=== PATIENT | female | born 1960 | race Caucasian/White ===

== ENCOUNTER 2022-07-30 05:22 | Observation (INO) ==
--- NOTE | 2022-05-06 09:02 | PAT Medication Instructions ---
Medication Instructions Date of Service May 06, 2022 Home Medications Medication Instructions Recorded Octavia Garcia #1 ea 05/02/22 apixaban 5 mg tablet (Eliquis) 5 mg PO BID bupropion HCl 100 mg tablet 100 mg PO QAM colchicine 0.6 mg capsule 0.6 mg PO QAM dextromethorphan HBr 15 mg capsule 60 mg PO BID diclofenac sodium 50 mg tablet,delayed release 50 mg PO BID duloxetine 20 mg capsule,delayed release (Cymbalta) 20 mg PO QAM losartan 50 mg tablet 50 mg PO QAM morphine 30 mg capsule,extended release 24 hr multiphase 30 mg PO HS oxycodone-acetaminophen 10 mg-325 mg tablet (Percocet) 1 tab PO TID PRN Pain pramipexole 1 mg tablet 3 mg PO HS pregabalin 200 mg capsule (Lyrica) 200 mg PO TID primidone 50 mg tablet 150 mg PO BID propranolol 20 mg tablet 40 mg PO HS ASK your surgeon for instructions diclofenac sodium 50 mg tablet,delayed release 50 mg PO BID ASK your prescriber and surgeon apixaban 5 mg tablet (Eliquis) 5 mg PO BID (in order for spinal anesthesia, Apixaban/Eliquis needs to be stopped 72 hours/3 days before surgery. Please check if okay with doctor that prescribes this to you) DO NOT take the morning of surgery dextromethorphan HBr 15 mg capsule 60 mg PO BID losartan 50 mg tablet 50 mg PO QAM colchicine 0.6 mg capsule 0.6 mg PO QAM Take morning of surgery With a small sip of water, OTHERWISE NOTHING TO EAT OR DRINK AFTER MIDNIGHT: bupropion HCl 100 mg tablet 100 mg PO QAM duloxetine 20 mg capsule,delayed release (Cymbalta) 20 mg PO QAM oxycodone-acetaminophen 10 mg-325 mg tablet (Percocet) 1 tab PO TID PRN Pain (if needed) pregabalin 200 mg capsule (Lyrica) 200 mg PO TID primidone 50 mg tablet 150 mg PO BID Take evening before surgery dextromethorphan HBr 15 mg capsule 60 mg PO BID morphine 30 mg capsule,extended release 24 hr multiphase 30 mg PO HS oxycodone-acetaminophen 10 mg-325 mg tablet (Percocet) 1 tab PO TID PRN Pain (if needed) pramipexole 1 mg tablet 3 mg PO HS pregabalin 200 mg capsule (Lyrica) 200 mg PO TID primidone 50 mg tablet 150 mg PO BID propranolol 20 mg tablet 40 mg PO HS Other Notes If you have any questions please call us at [phone] or [phone] or [phone] or [phone]
--- NOTE | 2022-05-07 10:16 | Anesthesiology Consultation ---
Date of Service May 07, 2022 Assessment & Plan (1) Encounter for pre-operative examination: Chart Review Chart Review: Acceptable Risk for Surgery (pending response from PCP re: upcoming surgery and recent blood clot; also pending preop Covid testing results ) and Patient seen in Pre Admission Testing - Will write note to PCP re: recent thrombosis to right LE/ needing to be on Eliquis x 3 months and if patient can proceed with right DUARTE as scheduled as well as hold Eliquis 3 days prior to surgery per surgeon instructions Per PAT appt on 05/06/22, patient denies any recent travel or large group activities. No known Covid positive exposures or Covid related symptoms. No known Covid infection in the past 90 days. Pt is vaccinated for Covid.. Preop Covid testing scheduled 05/15/22 = will await results. Educated on importance of self quarantining, social distancing and wearing mask in public for the patient one week prior to surgery and after Covid testing done Teaching & Discussion Pre-Anesthesia Teaching/Discussion Notes: Instructed NPO after midnight before surgery,except medications with 15 cc of water. Medication instructions p rovided according to the PAT guidelines. History Surgery Operation Date: 05/17/22 10:40 Proposed Procedures p Right Total Hip Arthroplasty - Stas Montano MD Height/Weight Height: 5 ft 8 in Weight: 121.2 kg Allergies Allergy/AdvReac Type Severity Reaction Status Date / Time No Known Allergies Allergy Verified 05/03/22 10:52 Medications Home Medications Medication Instructions Recorded Confirmed Last Taken Wheeled Walker #1 ea 05/02/22 05/02/22 Unknown apixaban 5 mg tablet (Eliquis) 5 mg PO BID 05/03/22 05/03/22 Unknown bupropion HCl 100 mg tablet 100 mg PO QAM 05/03/22 05/03/22 Unknown colchicine 0.6 mg capsule 0.6 mg PO QAM 05/03/22 05/03/22 Unknown dextromethorphan HBr 15 mg capsule 60 mg PO BID 05/03/22 05/03/22 Unknown diclofenac sodium 50 mg 50 mg PO BID 05/03/22 05/03/22 Unknown tablet,delayed release duloxetine 20 mg capsule,delayed 20 mg PO QAM 05/03/22 05/03/22 Unknown release (Cymbalta) losartan 50 mg tablet 50 mg PO QAM 05/03/22 05/03/22 Unknown morphine 30 mg capsule,extended 30 mg PO HS 05/03/22 05/03/22 Unknown release 24 hr multiphase oxycodone-acetaminophen 10 mg-325 1 tab PO TID PRN Pain 05/03/22 05/03/22 Unknown mg tablet (Percocet) pramipexole 1 mg tablet 3 mg PO HS 05/03/22 05/03/22 Unknown pregabalin 200 mg capsule (Lyrica) 200 mg PO TID 05/03/22 05/03/22 Unknown primidone 50 mg tablet 150 mg PO BID 05/03/22 05/03/22 Unknown propranolol 20 mg tablet 40 mg PO HS 05/03/22 05/03/22 Unknown Past Medical History Medical History (Updated 05/07/22 @ 13:28 by Mer Rolle PA-C) Arthritis of right hip Depression Essential tremor Per PCP records Hx of cancer of uterus 2018- s/p surgical intervention (hysterectomy) (no chemo or radiation) Hyperlipidemia Hypertension Morbid obesity Tibial vein thrombosis Right LE Dx'ed 04/26/22 per ultrasound (no femoral or popliteal DVT seen in extremity)- recommended AC x 3 months (on Eliquis) Exercise / Class Metabolic Activity II 4-5 Yardwork/Stairs/Walk up hill (one of flight of stairs - no chest pain or SOB ) Past Surgical History Surgical History History of nasal surgery R/t chronic sinusitis History of total right knee replacement Hx of arthroscopy of right knee x4 total Hx of colonoscopy Hx of foot surgery Left heel bone spur Hx of hysterectomy Hx of wisdom tooth extraction Past Anesthesia History No Hx of Anesthesia Complications and No Family Hx of Anesthesia Complications History of PONV No Hx of PONV and No Hx of Motion Sickness Social History Smoking Status: Never smoker Do You Dip or Chew Tobacco: No Hx Alcohol Use: Yes alcohol intake frequency: holidays/special occasions only Alcohol Intake Frequency Comment: rare Hx Substance Use: No substance use type: does not use Review of Systems PUGA- chronic and stable- feels secondary to deconditioning Hx of snoring - no witnessed apnea- last sleep study in (did not have TAMMY at that time) Patient denies chest pain, shortness of breath at rest, reflux, cough, wheezing, palpitations. No hx of seizures, stroke, IA. No hx of blood transfusions Physical Exam Vital Signs VITALS BP 117/74 P 74 TEMP 98.7 SP02 94% RESP 16 Constitutional no acute distress ENMT Mouth: no TMJ clicking Thyromental Distance: > or= 3.5 Finger Breadths (3.5) Mallampati Class: III Missing molar Neck neck extension not limited Respiratory normal respiratory effort; no respiratory distress Auscultation: lungs clear to auscultation bilaterally; no wheezes Cardiovascular Rate/Rhythm: regular rate and regular rhythm Heart Sounds: no murmur Vessels: no carotid bruit Musculoskeletal Spine: no pain with cervical ROM Extremities: extremities normal to inspection Psychiatric Orientation: alert Lab Results Anesthesia Preop Results Results Anesthesia Widget: PT 10.9 Seconds (9.0-12.0) 05/07/22 PTT 28.3 Seconds (21.0-31.0) 05/07/22 INR 1.0 (0.9-1.1) 05/07/22 Blood Type A Positive 05/07/22 Antibody Screen NEGATIVE 05/07/22 Testing Laboratory Results 04/29/22= WBC: 6.60 H/H: 12.3/37.6 PLATELETS: 234 SODIUM: 141 POTASSIUM: 4.3 CHLORIDE: 105 CO2: 27 BUN: 13 CREATININE: 0.6 GLUCOSE: 106 Electrocardiogram Date: 05/07/22 Findings: + NSR @ (75bpm ) Normal EKG per cardio. Chest X-Ray Date: 05/07/22 Findings: + NAD
--- NOTE | 2022-07-26 21:29 | History and Physical Report ---
DATE OF ADMISSION: 07/30/2022 CHIEF COMPLAINT: Right hip pain. 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 She has had a 2-3 year history of increasing right hip pain and discomfort, describes it has gotten worse over time. She has actually had to use crutches for the past several months. She did fall on the ice back in October and seems to aggravate things. She has been taking Percocet several times a day for the past year for hip and back problems. She did have a diagnosis of superficial phlebitis and is on anticoagulation. She did get a recent hematology evaluation and they feel that she can come off this after her surgery. She has no known clotting disorder. She would really like to have her hip fixed. PAST MEDICAL HISTORY: Include: 1. Depression. 2. Superficial thrombosis, right lower extremity without DVT. 3. Hypertension. 4. Vaginal cancer. PAST SURGICAL HISTORY: Include: 1. Multiple right knee surgeries including arthroscopy, meniscectomy, HTO, and total knee replacement done elsewhere. 2. Nasal surgery. 3. Hysterectomy. ALLERGIES: None. CURRENT MEDICATIONS: Include: 1. Lyrica. 2. Percocet 10 mg 3 times a day. 3. Morphine at night. 4. Cymbalta. 5. Unspecified Med 6. Colchicine. 7. Losartan. 8. Premarin. 9. Bupropion. 10. Dextromethorphan. SOCIAL HISTORY: A 61-year-old female. The patient is . Rare alcohol intake. Does not smoke. FAMILY HISTORY: Significant for heart disease. REVIEW OF SYSTEMS: Negative for diabetes. No chest pain or shortness of breath. She does have a history of a recent superficial phlebitis, but no known clotting disorder. She was seen by hematology and they think she can come off this in 3-4 weeks out from surgery date. She is on chronic Percocet. PHYSICAL EXAMINATION: GENERAL: Shows a pleasant, moderately obese, middle-aged female. BMI 41. HEENT: Benign. NECK: Supple. No lymphadenopathy. LUNGS: Clear to auscultation. HEART: Has a regular rate and rhythm. ABDOMEN: Soft, nontender, nondistended. EXTREMITIES: Grossly neurovascularly intact except as follows. Examination of the right hip revealed patient walks with a markedly antalgic gait. She maybe just a slight bit short on the right by about a 0.5 cm. She has got a fairly decent hip motion. She can internally rotate to 10 degrees. This re-creates pain. Negative straight leg raise. She is neurologically intact. X-RAYS: X-rays of the hip were reviewed. It shows advanced right hip DJD. She has complete loss of her superior joint space. She has got flattening of her femoral head. MRI from [facility] was reviewed. It shows advanced hip arthritis. She has got flattening of the femoral head. She has got bony edema of the femoral head and acetabulum. 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 She has got some underlying back problems as well. She is on chronic Percocet, which we have encouraged her to get off over the past couple months. She would like to have her hip fixed. She has got advanced arthritis. We are going to proceed with right total hip replacement. The risks and benefits were explained and she understands. She did see hematology and they think she can come off her anticoagulation in 3-4 weeks postop. She is planning to go home with home health. We will use Eliquis postoperatively for DVT prophylaxis at a prophylactic dose level. Job ID: [id number] [facility]
[2022-07-30] MEDS ORDERED: METOCLOPRAMIDE HCL 10 MG TABLET PO SCH (06:00)
[2022-07-30] MEDS ORDERED: FAMOTIDINE 20 MG TAB PO SCH (06:00)
[2022-07-30] MEDS ORDERED: TRANEXAMIC ACID 1,000 MG **IV Pre-op IV SCH (06:00)
[2022-07-30] MEDS ORDERED: Scopolamine 1 MG TDSY TD SCH (06:00)
[2022-07-30] MEDS ORDERED: CeleBREX 200 MG CAP PO SCH (06:00)
[2022-07-30] MEDS ORDERED: LR 60ML/HR IV SCH (06:00)
[2022-07-30] MEDS ORDERED: LR 500ML BOLUS, THEN 15ML/HR IV SCH (06:00)
[2022-07-30] MEDS ORDERED: ACETAMINOPHEN 500 MG TAB PO SCH (06:00)
[2022-07-30] MEDS ORDERED: ceFAZolin 2000MG 2,000 MG/15 ML SYR IV SCH (06:00)
[2022-07-30] MEDS ORDERED: BUPIVACAINE 0.5 % 5 MG/1 ML PF 10ML VIAL ONE (06:27)
[2022-07-30] MEDS ORDERED: ePHEDrine sulfate 50 MG/ML AMP IV PRN (06:38)
[2022-07-30] MEDS ORDERED: ATROPINE SULFATE 0.1 MG/ML 10ML SYR IV PRN (06:38)
[2022-07-30] MEDS ORDERED: ONDANSETRON INJ 2 MG/ML 2 ML VIAL IV PRN ×2 (06:38→11:25)
[2022-07-30] MEDS ORDERED: fentaNYL citrate 100 MCG/2 ML VIAL IV PRN (06:38)
[2022-07-30] MEDS ORDERED: MIDAZOLAM HCL 1 MG/ML 2ML VIAL ONE (06:46)
--- NOTE | 2022-07-30 06:53 | History & Physical Bridge Note ---
Date of Service July 30, 2022 History & Physical Bridge Note I have examined the patient, reviewed the History & Physical and in the interval since the performance of the History & Physical I have noted the following changes of clinical significance: no changes noted
[2022-07-30] MEDS ORDERED: EPINEPHrine INJ 1 MG/ML AMP ONE (06:54)
[2022-07-30] MEDS ORDERED: BUPIVACAINE 0.5 % 5 MG/1 ML MPF 30ML VIAL ONE (06:54)
[2022-07-30] MEDS ORDERED: PROPOFOL IV EMULSION 10 MG/ML 20 ML VIAL IV ONE ×4 (07:30→09:04)
[2022-07-30] MEDS ORDERED: LIDOCAINE 2% MPF LOCAL 5 ML VIAL INFIL ONE (07:30)
[2022-07-30] MEDS ORDERED: ONDANSETRON INJ 2 MG/ML 2 ML VIAL ONE (08:23)
--- NOTE | 2022-07-30 09:30 | Operative Report ---
PG Post Operative Report Pre & Post Diagnosis Operation Date: 07/30/22 07:00 Pre-Op Diagnosis: Right Hip Advanced Degenerative Joint Disease Post-Op Diagnosis: Right Hip Advanced Degenerative Joint Disease I identified the patient and participated in the time-out.: Yes Procedure Operation Date: 07/30/22 07:00 Actual Procedures p Right Total Hip Arthroplasty--Uncemented(Right) - Stas Montano MD Surgeon Stas Montano MD Kennel Manager Gibran Garcia PA-C Estimated Blood Loss 300 Findings Consistent with Post-Op Diagnosis Operative findings advanced right hip DJD. She had a very large thick soft tissue envelope. She had advanced degenerative changes of her hip with a full- thickness loss particular of the femoral head with flattening and that would look to be subchondral fracture. Moderate-sized joint effusion. Fluids 1000 cc Specimens Right femoral head sent for pathology Drains None Anesthesia Type Spinal MAC Complications none Disposition Accompanied Patient To Recovery: No Indications Patient is a 61-year-old female whose had a several year history of increasing right hip pain discomfort spastically worse over the past 6 months. She had to use a cane to even get around. X-rays show progressive hip arthritis which she failed all conservative measures. She elected proceed with total hip a rthroplasty. Description of Procedure Operative implants consist of: 1 Biomet G7 size 52 mm acetabular shell. 2. Soso hole curtain drier. 3. 6.5 cancellous acetabular screws 135 mm length and 125 mm length. 4. Highly cross-linked polyethylene liner with a 52 mm outer diameter and 36 mm inner diameter. 5. DePuy Corail size 11 KLA femoral stem. 6. +1.5/36 mm ceramic articular ball. The patient was taken the operating, identified, placed on the operating table supine position protectors were properly padded. IV antibiotics arrived by anesthesia team. Spinal anesthetic had been implemented holding area. She did get TXA Preoperatively. Batres cath was placed in sterile fashion and the patient then placed in the left lateral decubitus position. Axillary roll was placed. A Stulberg hip positioner was used for positioning. We did spend some extra time positioning this patient due to her large soft tissue envelope. Right hip and leg were then prepped and draped in usual sterile fashion. Posterior lateral process of the right hip were then performed through a curvilinear incision centered over the greater trochanter. Sharp dissection Through subcutaneous tissue down the IT band gluteal fascia. There was a very thick soft tissue envelope. The IT band gluteal fascia incised longitudinally in line with skin incision. The underlying greater bursa was excised. The piriformis and external rotators as well as the posterior joint capsule were then released in the posterior aspect hip as a single layer. Great care was taken throughout the procedure protect the sciatic nerve at all times. Hip was internally rotated and dislocated. Femoral neck osteotomy cut was made with Final Cut about 12 mm above the lesser trochanter. Femoral head was removed and sent for pathology. The femur was retracted anteriorly. Attention drawn the acetabulum. The acetabulum was excised. Pulmonary fat was excised for sequential reaming the acetabular was then performed begin with size 43 and progressing up to 51. I did ream some with a 52 reamer and then placed a 52 mm cup in about 40 degrees lateral opening and 20 degrees of anteversion. We talked worked hard to try and get this in appropriate position and anteversion and lateral opening especially considering her large thick soft tissue envelope. The cup was secured with 2 screws. Trial liner was placed. Attention drawn the femur. The proximal femur was entered with the [employer] cutter followed by canal finder. Then broached begin the size 8 and progressing up to 11. Excellent fit 11. Then trialed the hip. The +5 articular mostly distal but tight so we used a +1.5. There was fully stable extension and external rotation and flexion to 9 degrees internal Tatian over [address] We elect to place these implants. No leg length seemed appropriate and soft tissue tension seemed appropriate. All trial implants were removed. An apex hole curtain drier was placed. Highly cross-linked polyethylene liner was placed. A DePuy size 11 KLA femoral stem was impacted in position. We left this just a little bit proud. A +1.5/36 mm ceramic articular ball was placed. Hip was located once again found to be stable. Attention drawn to closing. Wounds irrigated cosigns pulsatile lavage solution. We did inject locally with 60 cc of half percent Marcaine with epinephrine. Posterior capsule and external rotators were repaired through drill holes in the posterior trochanter as a single layer with #2 Tycron suture. The IT band gluteal fascia then closed in 1 PDS suture running fashion for subcutaneous tissue then closed with 2 layers the deep layer #2 Vicryl suture in the subcutaneous tissues with 2-0 Dexon suture in a buried interrupted fashion the skin was closed skin bishop. Legs then cleaned and dried a sterile dressing composed of a Prevena VAC dressing was applied. We use this due to her very large thick soft tissue envelope to limit risk of infection and hopefully he will improve healing. Patient was then taken off the OR table and transferred to the recovery room in stable condition. Patient tolerated procedure well no complications. Gibran Garcia, my physician employment legal assistant, was present for the entire procedure. His assistance was essential and required for appropriate patient positioning, prepping and draping, surgical exposure, performing the technical details of the operation, placement the implants, closure of the wound, and placement of the sterile bandage. I attest to the content of the Intraoperative Record and any orders documented therein. Any exceptions are noted below.
--- NOTE | 2022-07-30 09:37 | XRay Report ---
XR hip 1V RT w pelvis HISTORY: 61 years-old Female IN PACU - Post Surgical right hip total joint arthroplasty COMPARISON: CT abdomen and pelvis 06/20/2022 TECHNIQUE: AP view of the pelvis with 2 views of the right hip FINDINGS: Right hip total joint arthroplasty appears to be in satisfactory positioning. Lateral skin bishop wi th expected postoperative soft tissue swelling and deep tissue air. There is mild to moderate left hi p osteoarthritis. IMPRESSION: Right hip total joint arthroplasty with expected postoperative changes. ACT 112: Negative or not required by law. The above report was generated using voice recognition software. It may contain grammatical, syntax o r spelling errors. Electronically signed by: Mukund Adam M.D. 07/30/2022 9:35 AM
[2022-07-30] MEDS ORDERED: ePHEDrine sulfate 50 MG/ML AMP ONE (10:47)
[2022-07-30] MEDS ORDERED: PHENYLEPHRINE 100MCG/ML 5ML SYR ONE (10:47)
[2022-07-30] MEDS ORDERED: METOCLOPRAMIDE HCL INJ 5 MG/ML 2 ML VIAL IV PRN (11:25)
[2022-07-30] MEDS ORDERED: ALUMINUM/MAGNESIUM SUSP 30 ML UDC PO PRN (11:25)
[2022-07-30] MEDS ORDERED: diphenhydrAMINE Capsule 25 MG CAP PO PRN (11:25)
[2022-07-30] MEDS ORDERED: bisacodyL 10 MG SUPP PR PRN (11:25)
[2022-07-30] MEDS ORDERED: SODIUM CHLORIDE 0.9% 1000ML 1,000 ML IV SCH (11:25)
[2022-07-30] MEDS ORDERED: HYDROmorphone HCL 2 MG TAB PO PRN (11:25)
[2022-07-30] MEDS ORDERED: NALOXONE HCL 0.4 MG/1 ML VIAL/CARP IV PRN (11:25)
[2022-07-30] MEDS ORDERED: MAGNESIUM HYDROXIDE SUSP 30 ML UDC PO PRN (11:25)
[2022-07-30] MEDS: KETOROLAC 30 MG/ML VIAL IV SCH ×2 (13:22→20:44)
[2022-07-30] MEDS: PREGABALIN 100 MG CAP PO SCH ×2 (13:22→20:54)
[2022-07-30] MEDS: ACETAMINOPHEN 500 MG TAB PO SCH ×2 (13:22→22:09)
--- NOTE | 2022-07-30 13:59 | Anesthesiology Progress Note ---
Date of Service July 30, 2022 Anesthesia Post Procedure Vital Signs Vital Signs: Temp Pulse Resp BP Pulse Ox O2 Del Method O2 Flow Rate 07/30/22 13:20 36.6 C 71 16 112/71 97 Room Air 07/30/22 12:55 36.6 C 77 18 129/66 100 Room Air 07/30/22 12:00 36.4 C L 62 18 144/83 H 95 07/30/22 11:31 36.4 C L 65 18 128/70 97 Room Air 07/30/22 10:45 63 23 125/75 96 Oxymask 2 07/30/22 10:35 36.3 C L 56 L 16 120/71 99 Nasal Cannula 2 07/30/22 10:25 56 L 12 115/69 98 Oxymask 2 07/30/22 10:15 58 L 19 126/77 98 Oxymask 2 07/30/22 10:05 69 21 124/77 96 Oxymask 2 07/30/22 09:55 60 21 126/71 99 Oxymask 2 07/30/22 09:35 61 15 127/71 99 Oxymask 5 07/30/22 09:45 63 16 125/71 100 Oxymask 2 07/30/22 09:25 59 L 18 119/79 100 Oxymask 5 07/30/22 09:15 36.4 C L 86 17 117/66 99 Oxymask 5 07/30/22 05:58 37 C 75 20 129/75 95 Room Air Pain Intensity Right Hip: Pain Intensity: 4 Right Knee: Pain Intensity: 4 Transfer of Care Handoff Completed per policy Notes Mental Status: alert / awake / arousable and participated in evaluation Patient Amnestic to Procedure: Yes Nausea / Vomiting: adequately controlled Pain: adequately controlled Airway Patency, RR, SpO2: stable & adequate BP & HR: stable & adequate Hydration State: stable & adequate Neuraxial Anesthesia: was administered and sensory block is resolving Anesthetic Complications: no major complications apparent
[2022-07-30] MEDS: HYDROmorphone INJ 1 MG/ML SYRINGE IV PRN ×2 (15:18→22:08)
[2022-07-30] MEDS: Scopolamine CHECK PATCH PLACEMENT SCH (15:19)
[2022-07-30] MEDS ORDERED: TRANEXAMIC ACID / 0.7% NACL 1,000 MG/100 ML BAG IV SCH (15:30)
[2022-07-30] MEDS: ceFAZolin 2000MG 2,000 MG/15 ML SYR IV SCH (15:55)
[2022-07-30] MEDS: ASCORBIC ACID 500 MG TAB PO SCH (16:04)
[2022-07-30] MEDS: PRIMIDONE 50 MG TAB PO SCH (20:53)
[2022-07-30] MEDS: DOCUSATE SODIUM/SENNA 50/8.6MG TAB PO SCH (20:55)
[2022-07-30] MEDS: DOCUSATE SODIUM 100 MG CAP PO SCH (20:57)
[2022-07-30] MEDS: DEXTROMETHORPHAN POLYMR COMPLX 60 MG/10 ML UDP PO SCH (20:58)
[2022-07-30] MEDS ORDERED: PROPRANOLOL HCL 20 MG TAB PO SCH (21:00)
[2022-07-30] MEDS ORDERED: oxyCODONE HCL 20 MG TABCR (OxyCONTIN) PO SCH (21:00)
[2022-07-30] MEDS ORDERED: PRAMIPEXOLE DIHYDROCHLO 0.5 MG TAB PO SCH (21:00)
[2022-07-30] MEDS ORDERED: SENNA 8.6 MG TAB PO SCH (21:00)
[2022-07-31] MEDS: ceFAZolin 2000MG 2,000 MG/15 ML SYR IV SCH (00:58)
[2022-07-31] MEDS: Scopolamine CHECK PATCH PLACEMENT SCH ×2 (00:59→08:59)
[2022-07-31] MEDS: KETOROLAC 30 MG/ML VIAL IV SCH ×2 (01:01→08:59)
[2022-07-31] MEDS: ACETAMINOPHEN 500 MG TAB PO SCH (05:32)
[2022-07-31 07:17] LABS: Basophils # (auto) 0.02 K/uL (0-0.2); Basophils % (auto) 0.3 %; Eosinophils # (auto) 0.08 K/uL (0-0.50); Eosinophils % (auto) 1.2 %; Hematocrit (blood only) 32.6 % (34.1-44.9); Hemoglobin 10.8 g/dl (12.0-16.0); Immature Granulocytes # (auto) 0.02 K/uL (0.00-0.02); Immature Granulocytes % (auto) 0.3 %; Lymphocytes % (auto) 12.3 %; Mean Corpuscular Hemoglobin 31.9 pg (25.0-34.0); Mean Corpuscular Hgb Conc 33.1 g/dL (32.0-36.0); Mean Corpuscular Volume 96.2 fL (80.0-100.0); Mean Platelet Volume 10.5 fL (9.4-12.3); Monocytes # (auto) 0.54 K/uL (0.24-0.82); Monocytes % (auto) 8.3 %; Neutrophils # (auto) 5.03 K/uL (1.4-6.5); Neutrophils % (auto) 77.6 %; Platelet Count 218 K/uL (130-400); RDW Coefficient of Variation 13.6 % (11.5-14.5); RDW Standard Deviation 48.4 fL (36.4-46.3); Red Blood Count 3.39 M/uL (3.93-5.22); White Blood Count 6.49 K/ul (4.8-10.8)
[2022-07-31 07:40] LABS: BUN Creatinine Ratio 32.4 (10-20); Creatinine Clr Calc Pharmacy 120.6 ml/min; Est GFR (Non-African American) 95.7 ml/min; Potassium 4.4 mmol/L (3.5-5.1)
[2022-07-31] MEDS ORDERED: dexAMETHasone 10 MG in SYRINGE 0 ML IV SCH (08:00)
[2022-07-31] MEDS: DEXTROMETHORPHAN POLYMR COMPLX 60 MG/10 ML UDP PO SCH (08:51)
[2022-07-31] MEDS: PRIMIDONE 50 MG TAB PO SCH (08:53)
[2022-07-31] MEDS: DOCUSATE SODIUM/SENNA 50/8.6MG TAB PO SCH (08:59)
[2022-07-31] MEDS: ASCORBIC ACID 500 MG TAB PO SCH (08:59)
[2022-07-31] MEDS ORDERED: COLCHICINE 0.6 MG TAB PO SCH (09:00)
[2022-07-31] MEDS ORDERED: LOSARTAN POTASSIUM 50 MG TAB PO SCH (09:00)
[2022-07-31] MEDS: DOCUSATE SODIUM 100 MG CAP PO SCH (09:00)
[2022-07-31] MEDS ORDERED: MULTIVITAMIN TAB PO SCH (09:00)
[2022-07-31] MEDS ORDERED: DULoxetine HCL 20 MG CAP PO SCH (09:00)
[2022-07-31] MEDS: PREGABALIN 100 MG CAP PO SCH (09:00)
[2022-07-31] MEDS ORDERED: buPROPion HCl 100 MG TABLET PO SCH (09:00)
[2022-07-31] MEDS: HYDROmorphone INJ 1 MG/ML SYRINGE IV PRN (09:00)
[2022-07-31] MEDS ORDERED: APIXABAN 2.5 MG TAB PO SCH (10:00)
--- NOTE | 2022-07-31 12:00 | Progress Notes ---
DATE OF SERVICE: 07/31/2022 SUBJECTIVE: A 61-year-old white female postoperative day 1 from a right hip replacement. She is doi ng pretty well. A bit more pain today, but feels like therapy went well. No chest pain or shortness of breath. Just feels tired and wiped out. She is hoping to go home. OBJECTIVE: VITAL SIGNS: Temperature 36.7. Vital signs are stable. GENERAL: Shows a pleasant middle-aged female. She is sitting up in her bedside chair. I had to wake her and she looked pretty groggy. Took a little while to get her awake. LUNGS: Clear to auscultation. HEART: Regular rate and rhythm. ABDOMEN: Soft, nontender, nondistended. EXTREMITIES: Grossly neurovascularly intact except as follows: Examination of the right hip and leg reveals a Prevena VAC dressing to be in place. Leg lengths were equal. Thigh is soft and supple. She is neurologically intact. LABORATORY DATA: Hemoglobin 10.8. Hematocrit 32.6. Electrolytes are stable. ASSESSMENT: A 61-year-old white female postoperative day 1 from a right hip replacement, doing prett y well. She looks maybe a little bit overmedicated or just really tired from the surgery and events over the past 24 hours. In any case, her hip is located. Pain is controlled. She is neurologically intact. PLAN: 1. DVT prophylaxis including thigh-high TEDs, SCDs, and she is back on Eliquis. We will start a pro phylactic dose today. Therapeutic dose starting tomorrow. 2. PT, OT, weightbear as tolerated. Right total hip protocol. 3. Pain control, doing okay with current pain regimen. We are going to try and stick to using Armando haque and she is going to go off her oxycodone for now. 4. Disposition: She is planning to be discharged to home with some home health. Job ID: [id number]
--- NOTE | 2022-08-02 06:32 | Discharge Summary ---
Date of Service August 02, 2022 Discharge Data Procedures Performed Operation Date: 07/30/22 07:00 Actual Procedures p Right Total Hip Arthroplasty--Uncemented(Right) - Stas Montano MD Hospital Course (1) Status post total hip replacement, right: This is a 61 year old patient admitted on 07/30/22 and underwent total hip arthroplasty. She tolerated the procedure well and there were no complications. Transferred to the PACU post op and later to the orthopedic floor for further care. She was given ancef for antibiotic prophylaxis. She was also given BRETT stockings, SCDs, and eliquis for DVT prophylaxis. Hemoglobin, hematocrit, and vital signs were monitored during her hospital stay and remained stable. Did not require any blood transfusions. There were no complications during her hospital stay. By post op day #1 the patient was tolerating a regular diet, pain was reasonably controlled with oral pain medicine, and she was participating in physical therapy. On post op day #1 the patient was discharged home and set up with home health care. She was given printed discharge instructions including prescriptions for extra strength tylenol, zofran,senokot, and hydromorphone. Continue physical therapy, weight bearing as tolerated. Continue BRETT stockings. Continue hip precautions. Follow up approximately 2 weeks post op or sooner if there are problems or concerns. Coding Level of Care Code None Diagnoses Status post total hip replacement, right Z96.641
== END 2022-07-31 13:55 | disposition home health service (06) ==
LOC: 3E 05:22 → ASU 05:22
DX: Z86.718 Personal history of other venous thrombosis and embolism; M16.11 Unilateral primary osteoarthritis, right hip; Z79.899 Other long term (current) drug therapy